=== PATIENT | male | born 1935 | race Caucasian/White ===

== ENCOUNTER 2019-07-25 11:33 | Observation (INO) ==
--- NOTE | 2019-07-25 12:03 | Diag Imaging Result Doc PS360 ---
CT HEAD W/O CONTRAST - 07/25/2019 INDICATION: stroke like symptoms COMPARISON: 06/04/2016 FINDINGS: There is stable, moderately advanced periventricular white matter chronic microvascular disease. Stable old lacunar in the left basal ganglia. No intracranial mass or hemorrhage. The skull is intact. The sinuses, mastoids, and middle ears are clear. IMPRESSION: No acute disease or change from prior. This exam was performed using automated exposure control, adjustment of mA or kV according to patient size, and/or use of iterative reconstruction technique Electronically signed by Freddie Plata 07/25/2019 12:01 PM
--- NOTE | 2019-07-25 12:04 | Diag Imaging Result Doc PS360 ---
CHEST-PORTABLE - 07/25/2019 INDICATION: stroke like symptoms COMPARISON: 03/27/2019 FINDINGS: Stable scarring at the left lung base. Stable hiatal hernia. No infiltrates or edema. Heart size remains top normal. IMPRESSION: No acute disease or change from prior. Electronically signed by Freddie Plata 07/25/2019 12:01 PM
--- NOTE | 2019-07-25 12:27 | EKG Report ---
Test Performed on : 07/25/2019 12:00:29 PM Test Reason : Stroke like symptoms Blood Pressure : / mmHG Vent. Rate : 076 BPM Atrial Rate : 076 BPM P-R Int : 130 ms QRS Dur : 094 ms QT Int : 394 ms P-R-T Axes : 070 045 094 degrees QTc Int : 443 ms Normal sinus rhythm. Nonspecific T wave abnormality Abnormal ECG When compared with ECG of 04-JUN-2016 18:55, No significant change was found Confirmed by Nigel Fleming MD ([id number]) on 07/27/2019 9:00:35 AM
[2019-07-25 12:40] LABS: BASO# 0.01 X1000 (0.0-0.2); BASO% 0.1 % (0.0-0.8); EOS# 0.31 X1000 (0.0-0.7); EOS% 4.5 % (0.0-10.0); HEMATOCRIT 42.6 % (42.0-52.0); HEMOGLOBIN 14.1 g/dL (14.0-18.0); LYMPH# 1.49 X1000 (1.2-3.4); LYMPH% 21.7 % (20.5-51.1); MCH 32.7 PG (27-31); MCHC 33.1 g/dL (33-37); MCV 98.8 FL (81-99); MONO# 0.79 X1000 (0.11-0.59); MONO% 11.5 % (1.7-9.3); MPV 10.6 FL (7.4-10.4); NEUT# 4.28 X1000 (1.4-6.5); NEUT% 62.2 % (42.2-75.2); PLT 241 X1000 (130-400); RBC 4.31 XMIL (4.7-6.1); WBC 6.88 X1000 (4.8-10.8)
[2019-07-25 12:49] LABS: INR 0.94; PROTIME 12.7 Seconds (11.0-16.0)
[2019-07-25 13:03] LABS: PTT < 20.0 Seconds (22.3-41.8)
[2019-07-25 14:01] LABS: ALB/GLOB RATIO 1.4; ALBUMIN 4.1 g/dL (3.5-5.0); CALCIUM 9.4 mg/dL (8.8-10.2); CREATININE 1.5 mg/dL (0.7-1.2); POTASSIUM 4.6 mmol/L (3.5-5.1); TOTAL BILIRUBIN 0.49 mg/dL (0.20-1.00); TOTAL PROTEIN 7.1 g/dL (6.3-8.3)
[2019-07-25] MEDS ORDERED: DULERA 100 MCG/5 MCG INHALER INH PRN (14:04)
[2019-07-25] MEDS ORDERED: TYLENOL PO PRN (14:04)
[2019-07-25] MEDS: DUONEB (A & A) INH SCH ×3 (16:14→23:00)
[2019-07-25 16:24] LABS: URINE SOURCE CLEAN CATCH
[2019-07-25 16:32] LABS: BILIRUBIN URINE NEGATIVE (NEGATIVE); BLOOD URINE NEGATIVE (NEGATIVE); COLOR YELLOW; GLUCOSE URINE NEGATIVE (NEGATIVE); KETONE URINE NEGATIVE (NEGATIVE); LEUKOCYTES URINE NEGATIVE (NEGATIVE); NITRITE URINE NEGATIVE (NEGATIVE); PH URINE 6.5; PROTEIN URINE TRACE mg/dL (NEGATIVE); SP GRAVITY URINE 1.018; TURBIDITY URINE CLEAR (CLEAR); UR EPITHELIAL CELLS <10 /HPF (<10); URINE BACTERIA NEGATIVE /HPF; URINE RBC <10 /HPF (<10); URINE WBC <10 /HPF (<10); UROBILINOGEN URINE NORMAL (NORMAL)
--- NOTE | 2019-07-25 17:49 | HISTORY AND PHYSICAL ---
Mr. Alvarez Gilliam is an 84-year-old gentleman with a history of coronary artery disease, gastroesophageal reflux disease, IBS with diarrhea, previous CVA, hyperlipidemia, COPD, vascular dementia and BPH who is well known to me. He woke up this morning confused and disoriented. He had slurred speech. He could not get his words out. He was unable to identify the family members. The symptoms lasted for approximately 30 minutes. Mrs. Gilliam reports that he remained confused and disoriented for at least an hour after the initial event. His CT scan of the brain demonstrated chronic white matter changes but no acute CVA. PAST MEDICAL HISTORY: As above. PAST SURGICAL HISTORY: Cataract surgery, renal lithotripsy x3. ALLERGIES: Augmentin, codeine, contrast dye, Levaquin, sulfa drugs. FAMILY HISTORY: One sister has lupus, 1 brother of lung cancer, another brother of metastatic melanoma, his mother at age 73. She had chronic renal failure on hemodialysis. Father at the age of 63 from complications of hypertension. MEDICATIONS: Bentyl 10 mg t.i.d. with meals, Plavix 75 mg daily, Coreg 3.125 mg b.i.d., Cymbalta 60 mg daily, Dexilant 60 mg daily, Dulera 100/5 one puff b.i.d., fexofenadine 180 mg daily, Lasix 40 mg daily, Singulair 10 mg daily, Razadyne 8 mg b.i.d., Flomax 0.4 mg daily. REVIEW OF SYSTEMS: He denies any recent weight gain or weight loss.HEENT: He wears glasses. He is hard of hearing. CV: No chest pain, palpitations, or anginal equivalents. Pulmonary: No shortness of breath, PND, orthopnea. GI: No reflux, dysphagia, melena, hematochezia, change in bowel habits, or rectal bleeding. Endocrine: No polyuria, no polydipsia. No cold or heat intolerance. Skin: No easy bruisability. : No leakage of urine with coughing or laughing. Neurologic: No migraines or seizures. Psychiatric: No history of depression. This is a chronically ill-appearing, 84-year-old gentleman in no apparent distress. Temperature 97.7 degrees pulse 81, respirations 18, BP 168/90 HEENT: Fundi with sharp discs and vessels. Pupils equal, round, reactive to light. Extraocular eye movements intact. Neck: Supple. No masses, JVD or bruits. CV: Regular rate and rhythm. Lungs: Clear. Abdomen: Soft, nontender, with active bowel sounds. No hepatosplenomegaly. No abdominal bruits. Extremities: Without edema. Skin: No palpable purpura. Genitourinary and Rectal: Deferred. Neuro: He is alert and oriented to name, place, and time. He answers questions appropriately. Cranial nerves 2-12 intact. Tongue is midline. He has normal tone and strength in the upper and lower extremities bilaterally. ASSESSMENT AND PLAN: 1. Transient ischemic attack. He has multiple risk factors for transient ischemic attack. His symptoms are certainly suggestive of a transient ischemic attack. His CT scan does not show any changes. We will continue blood pressure management and Plavix. It is typically unusual to see confusion with a transient ischemic attack which makes me wonder if these could also be subclinical seizures. I am going to place him on telemetry. We will do neuro checks every 4 hours for 24 hours. I will arrange for carotid ultrasound. We will also arrange for an EEG. 2. Hypertension. His blood pressure is mildly elevated but I do not want to lower his blood pressure too quickly in that it could increase the watershed area of a stroke. Given the patient's clinical presentation and comorbid conditions, I believe that it is reasonable to admit the patient to [facility]. At this point in time, I only anticipate that he will be in the hospital for 1 midnight and I will therefore place him in outpatient status with observation services. cc: Osvaldo Whitaker MD
[2019-07-25] MEDS ORDERED: DILAUDID IV ONE ×4 (19:01→20:07)
[2019-07-25] MEDS: COREG PO SCH (20:13)
[2019-07-25] MEDS: RAZADYNE PO SCH (20:20)
[2019-07-25] MEDS ORDERED: TRANXENE PO SCH (21:00)
[2019-07-25] MEDS ORDERED: PROSCAR PO SCH (21:00)
--- NOTE | 2019-07-25 21:08 | EEG REPORT ---
DATE: 07/25/2019 EEG NUMBER: [id number]. COMMENT: This is a digitally recorded EEG on an 84-year-old patient with reported cognitive impairment, possible recent neurologic event. FINDINGS: During waking, low amplitude 7 Hz posterior rhythm is present bilaterally with uncertain reactivity to eye opening. There is beta rhythm centrally. Polymorphic and rhythmic theta compose the frontal and central background symmetrically. Drowsing occurred briefly. Stage 2 sleep was not recorded. Muscle contraction artifact is present at times, but does not hinder interpretation. Photic stimulation did not alter the record. Hyperventilation was not done. No definite epileptiform discharge was identified. INTERPRETATION: Abnormal electroencephalogram because of mild generalized slowing. CORRELATION: This is indicative of a diffuse encephalopathy and is nonspecific. The absence of epileptiform discharges on a single EEG does not exclude a clinical diagnosis of seizure, but there is nothing on this record to establish the presence of a seizure disorder. cc: MD Osvaldo Whitman III, MD
--- NOTE | 2019-07-25 21:44 | Carotid Study ---
DATE: 07/25/2019 CROSSING WATCHMAN: Zhane. REFERRING PHYSICIAN: Osvaldo Whitaker MD INDICATION: Transient ischemic attack. COMPARISON: 07/03/2018. FINDINGS: Bilateral carotid arteries were visualized along their course. In the right bulb extending proximally to internal carotid artery, there were some mild atherosclerotic changes but no hemodynamically significant lesion. Similar but less severe noted in the left. Vertebrals were antegrade. SUMMARY: Stable, mild degree of atherosclerotic changes noted in the right carotid artery system and less so on the left with antegrade vertebrals bilaterally, which correlate to a 0% to 39% stenosis bilaterally. cc: MD Osvaldo Biswas MD
[2019-07-26] MEDS: DUONEB (A & A) INH SCH ×2 (02:59→07:46)
[2019-07-26 08:06] VITALS: BP 140/78
[2019-07-26] MEDS ORDERED: VENTOLIN HFA INH PRN (08:14)
[2019-07-26] MEDS ORDERED: LASIX PO PRN (08:14)
[2019-07-26] MEDS: COREG PO SCH (08:33)
[2019-07-26] MEDS: RAZADYNE PO SCH (08:33)
[2019-07-26] MEDS ORDERED: DEXILANT PO SCH (09:00)
[2019-07-26] MEDS ORDERED: FLOMAX PO SCH (09:00)
[2019-07-26] MEDS ORDERED: CYMBALTA PO SCH (09:00)
[2019-07-26] MEDS ORDERED: DEPAKOTE PO SCH (09:00)
[2019-07-26] MEDS ORDERED: PLAVIX PO SCH (09:00)
[2019-07-26] MEDS ORDERED: ADVAIR 100/50 DISKUS INH SCH (09:00)
[2019-07-26] MEDS ORDERED: BENTYL PO SCH (11:00)
--- NOTE | 2019-07-26 16:13 | DISCHARGE SUMMARY ---
ADMISSION DATE: 07/25/2019 DISCHARGE DATE: 07/26/2019 DISCHARGE DIAGNOSES: 1. Transient ischemic attack. 2. Suspected subclinical seizure. 3. Mild cognitive impairment. 4. Gastroesophageal reflux disease. 5. Mixed hyperlipidemia. 6. Chronic chronic obstructive pulmonary disease. 7. Obstructive sleep apnea. 8. benign prostatic hypertrophy. 9. Nocturia. 10. Depression. DISCHARGE INSTRUCTIONS: 1. The patient is to follow up with me, Dr. Chandler Whitaker, in 1 week for transition of care visit. 2. Activity as tolerated. 3. Healthy heart diet. MEDICATIONS: Bentyl 10 mg t.i.d. with meals, Plavix 75 mg daily, Cymbalta 60 mg daily, Dexilant 60 mg daily, Advair 250/50 one puff b.i.d., Lila-D b.i.d., Lasix 40 mg daily, Razadyne 8 mg daily, Flomax 0.4 mg daily, Proscar 5 mg daily, Singulair 10 mg daily, Depakote 125 mg b.i.d. This is an elderly, frail 84-year-old gentleman in no apparent distress. He is afebrile. Vital signs are stable. CV: Regular rate and rhythm. Lungs: Distant breath sounds with increased period of expiration. Abdomen: Soft, nontender, with active bowel sounds. No hepatosplenomegaly. No abdominal bruits. Neurologic: He is alert and oriented to name, place, and time. Cranial nerves 2-12 intact grossly. He has normal tone, strength in the upper and lower extremities. Mr. Gilliam was admitted to [facility] with an apparent TIA. He had slurred speech and difficulty getting his words out. The symptoms lasted 15 to 30 minutes and were followed by a prolonged period of confusion and disorientation. He remained in normal sinus rhythm throughout his scan. Carotid ultrasound demonstrated no obstruction of blood flow. CT scan of the brain demonstrated chronic white matter changes. He was back to his baseline neurologically. Because of the prolonged confusion after the initial event I am concerned that he may have actually had a subclinical seizure. His EEG demonstrated diffuse slowing. I am going to try him on a trial of Depakote 125 mg b.i.d. for 1 month. I will see him back in the office in 1 week for transition of care visit. Having reached maximum hospital benefit, the patient was discharged in stable condition. cc: Osvaldo Whitaker MD
[2019-07-26] MEDS ORDERED: SINGULAIR PO SCH (21:00)
== END 2019-07-26 09:51 | disposition home or self-care (01) ==
LOC: ED 11:33 → 1N 11:33
PROVIDERS: ADMIT Internal Medicine; ATTEND Internal Medicine